=== PATIENT | male | born 1955 | race Caucasian/White ===

== ENCOUNTER 2017-08-21 10:51 | Inpatient (IN) | payer OTHER ==
[~2017-08-21] VITALS: Ht 188 cm; Wt 99.3 kg
[2017-08-21 10:56] VITALS: BP 122/82
--- NOTE | 2017-08-21 11:01 | NUR ---
PT AMBULATED TO BED 11
--- NOTE | 2017-08-21 11:08 | NUR ---
62M BIB SELF C/O DIFFICULTY BREATHING WITH WALKING OR ACTIVITY X 1 WEEK. DENIES N/V/D; SKIN IS PINK/WARM/DRY; AAOX4 WITH EVEN AND STEADY GAIT; LUNGS CLEAR BL; HR EVEN AND REGULAR; PT DENIES ANY FEVER, CP, SOB, OR COUGH AT THIS TIME; PATIENT STATES PAIN OF 0/10 AT THIS TIME; VSS; PATIENT POSITIONED FOR COMFORT; HOB ELEVATED; BEDRAILS UP X2; BED DOWN. ER MD MADE AWARE OF PT STATUS.
[2017-08-21] MEDS ORDERED: ASPIRIN 81 MG TAB.CHEW PO ONE (11:40)
--- NOTE | 2017-08-21 11:55 | NUR ---
XRAY AT BEDSIDE
[2017-08-21 12:23] LABS: BASOPHILS # (AUTO) 0.2 K/uL (0.00-0.22); BASOPHILS % (AUTO) 2.3 % (0.0-2.0); EOSINOPHILS # (AUTO) 0.1 K/uL (0-0.4); EOSINOPHILS % (AUTO) 1.3 % (0.0-4.0); HEMOGLOBIN 15.3 g/dL (12.0-18.0); LYMPHOCYTES # (AUTO) 0.8 K/uL (2.0-11.5); MEAN CORPUSCULAR HEMOGLOBIN 32 pg (27-31); MEAN CORPUSCULAR HGB CONC 33 g/dL (33-37); MEAN CORPUSCULAR VOLUME 99 fL (80-94); MONOCYTES # (AUTO) 0.7 K/uL (0.8-1.0); MONOCYTES % (AUTO) 9.2 % (1.7-9.3); NEUTROPHILS # (AUTO) 5.7 K/uL (1.8-7.7); NEUTROPHILS % (AUTO) 76.2 % (42.2-75.2); PLATELET COUNT (AUTO) 208 K/uL (140-450); RED BLOOD CELL COUNT(AUTO) 4.75 MIL/uL (4.20-6.10); RED CELL DISTRIBUTION WIDTH 12.6 % (11.6-13.7); WHITE BLOOD COUNT (AUTO) 7.5 K/uL (4.8-10.8)
[2017-08-21 12:53] LABS: ANION GAP 16.7 (8-16); CARBON DIOXIDE 25.9 mmol/L (21-32); CREATININE 1.5 mg/dL (0.7-1.3); POTASSIUM 4.6 mmol/L (3.5-5.1)
[2017-08-21 13:01] LABS: ALBUMIN 3.9 g/dL (3.4-5.0); TOTAL BILIRUBIN 0.7 mg/dL (0.0-1.0)
[2017-08-21 13:06] LABS: CHOL/HDL RATIO 6.1 (1-4.5)
[2017-08-21 13:32] LABS: CREATINE KINASE MB 1.6 ng/mL (0-3.6)
[2017-08-21] MEDS ORDERED: AMLO5TAB PO (14:53)
[2017-08-21] MEDS ORDERED: GLIP10TE PO (14:53)
[2017-08-21] MEDS ORDERED: RANI150T8 PO (14:53)
[2017-08-21] MEDS ORDERED: RAMI5CAP1 PO (14:53)
[2017-08-21] MEDS ORDERED: INSU100S22 SUBQ (14:53)
[2017-08-21] MEDS ORDERED: METF1000 PO (14:53)
[2017-08-21] MEDS ORDERED: ATORVASTATIN 20 MG TAB PO SCH ×2 (15:10→15:45)
[2017-08-21] MEDS ORDERED: ACETAMINOPHEN 325 MG TAB PO PRN ×2 (15:10→15:45)
[2017-08-21] MEDS ORDERED: NACL 0.9% 1,000 ML IV SCH (15:10)
[2017-08-21] MEDS ORDERED: METOPROLOL 25 MG TAB PO SCH (15:10)
[2017-08-21] MEDS ORDERED: NITROGLYCERIN 0.4 MG TAB SL PRN ×2 (15:10→15:45)
[2017-08-21] MEDS ORDERED: INSULIN LISPRO SLIDING SCALE 100 UNITS/ML VIAL SUBQ PRN (15:10)
[2017-08-21] MEDS ORDERED: DEXTROSE 50% 50 ML SYR IVP PRN ×2 (15:10→15:45)
[2017-08-21] MEDS ORDERED: RAMIPRIL 5 MG CAP PO SCH (15:25)
--- NOTE | 2017-08-21 15:47 | NUR ---
Pt report given to ALISSA CELAYA AT BEDSIDE. Transfer of care at this time. PATIENT TRANSFERRED TO TELEMETRY UNIT 105A. NO S/S OF ACUTE DISTRESS NOTED.
[2017-08-21] MEDS: BLOOD GLUCOSE MONITORING 1 DEV DEV FS SCH ×2 (16:30→20:50)
[2017-08-21] MEDS ORDERED: BLOOD GLUCOSE MONITORING 1 DEV DEV FS SCH (16:30)
[2017-08-21] MEDS: NACL 0.9% 1,000 ML IV SCH (16:34)
[2017-08-21 16:50] VITALS: BP 119/85
--- NOTE | 2017-08-21 16:50 | NUR ---
PATIENT ARRIVED TO MST UNIT FROM ER VIA BED/GURNEY, ABLE TO WALK FROM ER BED TO MST BED WITH STEADY GAIT. RECEIVED REPORT FROM ER NURSE. NO DISTRESS NOTED. DENIES ANY PAIN AT THIS TIME. AAOX4, CALM, COOPERATIVE, SKIN COLOR APPROPRIATE TO ETHNICITY, WARM TO TOUCH. SKIN IS INTACT THROUGHOUT BODY. LUNGS CTA ON ALL LOBES. ABDOMEN SOFT, NON-DISTENDED. IVF STARTED PER MD ORDERS. REVIEWED PLAN OF CARE WITH PATIENT. PATIENT VERBALIZED UNDERSTANDING. SAFETY MEASURES IN PLACE, CALL LIGHT WITHIN REACH. WILL CONTINUE TO MONITOR.
[2017-08-21 16:52] LABS: PROTHROMBIN TIME 10.6 secs (10.8-13.4)
[2017-08-21] MEDS ORDERED: MECLIZINE 25 MG TAB PO PRN (17:00)
[2017-08-21 17:03] LABS: CHOL/HDL RATIO 5.7 (1-4.5); FREE T4 (FREE THYROXINE) 1.16 ng/dL (0.76-1.46); THYROID STIMULATING HORMONE 2.26 uIU/mL (0.34-3.74)
[2017-08-21] MEDS: INSULIN LISPRO SLIDING SCALE 100 UNITS/ML VIAL SUBQ PRN (17:29)
[2017-08-21 17:31] LABS: BILIRUBIN,URINE 2+ (NEGATIVE); BLOOD, URINE TRACE-L (NEGATIVE); LEUKOCYTE ESTERASE ,URINE NEGATIVE (NEGATIVE); NITRITE, URINE NEGATIVE (NEGATIVE); UGLUCOSE 3+ (NEGATIVE)
[2017-08-21 17:34] LABS: APPEARANCE,URINE CLEAR (CLEAR); COLOR,URINE AMBER (YELLOW)
[2017-08-21 17:46] LABS: BENZODIAZEPINE, URINE NEG. ng/mL (NEG <=200); CANNABINOID, URINE NEG. ng/mL (NEG <=50); COCAINE, URINE POS. ng/mL (NEG <=300); OPIATE, URINE NEG. ng/mL (NEG <=2000); PHENCYCLIDINE SCREEN,URINE NEG. ng/mL (NEG <=25)
--- NOTE | 2017-08-21 17:47 | NUR ---
RADIOLOGIST AT BEDSIDE PERFORMING SCAN. WILL CONTINUE TO MONITOR.
[2017-08-21 18:06] LABS: BARBITURATE, URINE NEG. ng/ml (NEG <=200)
[2017-08-21 18:34] LABS: RBC,URINE NONE SEEN /HPF (0-5); WBC,URINE NONE SEEN /HPF (0-5)
--- NOTE | 2017-08-21 19:35 | NUR ---
GAVE REPORT TO PEANUT GRADER NURSE FOR CONTINUITY OF CARE. PATIENT IN STABLE CONDITION.
--- NOTE | 2017-08-21 19:36 | NUR ---
RECEIVED REPORT FROM DAY SHIFT NURSE ALISSA FOR CONTINUITY OF CARE, PT IN STABLE CONDITION. NO S/S OF DISTRESS NOTED. PT AAOX4, ON ROOM AIR. IV TO L AC 20G, PATENT AND INTACT, INFUSING WELL. SKIN WARM AND DRY TO TOUCH. RR EVEN/UNLABORED. BOWEL SOUNDS PRESENT. INITIAL ASSESSMENT COMPLETED. PLAN OF CARE DISCUSSED WITH PT, VERBALIZED UNDERSTANDING. ALL SAFETY PRECAUTIONS MET, CALL LIGHT WITHIN REACH, WILL CONTINUE TO MONITOR
[2017-08-21 20:00] VITALS: BP 126/84
[2017-08-21] MEDS: FAMOTIDINE 20 MG TAB PO SCH (20:35)
[2017-08-21] MEDS: METOPROLOL 25 MG TAB PO SCH (20:39)
[2017-08-21] MEDS: RAMIPRIL 5 MG CAP PO SCH (20:49)
[2017-08-21] MEDS: INSULIN LANTUS 100 UNITS/ML 10 ML VIAL SUBQ SCH (21:00)
[2017-08-21] MEDS ORDERED: NON-FORMULARY ITEM (Insulin Glargine,Hum.rec.anlog (Lantus Solostar) 15 UNIT) SUBQ SCH ×2 (21:00)
[2017-08-21] MEDS ORDERED: NON-FORMULARY ITEM (Ranitidine HCl (Ranitidine Hydrochloride) 150 MG) PO SCH ×2 (21:00)
--- NOTE | 2017-08-21 21:30 | NUR ---
PT REFUSED LANTUS AT THIS TIME. BS 91. PT STATES, "I KNOW MYSELF AND I KNOW THAT WILL BOTTOM ME OUT, ILL BE BELOW 60 AND SCREAMING AND CRYING." PT EDUCATION ON MEDICATION PURPOSE AND SIDE EFFECTS. PT VERBALIZED UNDERSTANDING BUT REFUSES.
[2017-08-22] VITALS: BP 124/62
[2017-08-22] MEDS: NACL 0.9% 1,000 ML IV SCH (00:40)
--- NOTE | 2017-08-22 01:43 | NUR ---
DOMENICA CALLED IN REGARDS TO PTS CT ORDER WITH CONTRAST, PTS CREATININE IS 1.5 HIGH, DR. CRUZ MADE AWARE.
--- NOTE | 2017-08-22 01:44 | NUR ---
ORDER PUT IN FOR CT WITH CONTRAST IN AM, DOMENICA OCHOA [facility] CALLED BECAUSE IT WAS SUPPOSED TO BE CANCELED. DOMENICA STATED SHE WILL NOTIFY DR. CRUZ
[2017-08-22 04:00] VITALS: BP 128/72
--- NOTE | 2017-08-22 06:15 | NUR ---
PTS BS 155, PT STATES, "AT HOME I WOULD NOT TAKE ANYTHING FOR THAT. DO NOT GIVE ME INSULIN, IT WILL DROP TOO LOW." PT EDUCATED ON RISKS AND BENEFITS, VERBALIZED UNDERSTANDING
[2017-08-22] MEDS: BLOOD GLUCOSE MONITORING 1 DEV DEV FS SCH ×4 (06:34→20:44)
[2017-08-22 07:32] LABS: BASOPHILS # (AUTO) 0.2 K/uL (0.00-0.22); BASOPHILS % (AUTO) 3.9 % (0.0-2.0); EOSINOPHILS # (AUTO) 0.1 K/uL (0-0.4); EOSINOPHILS % (AUTO) 2.4 % (0.0-4.0); HEMATOCRIT 41.3 % (36-52); HEMOGLOBIN 13.6 g/dL (12.0-18.0); LYMPHOCYTES # (AUTO) 0.8 K/uL (2.0-11.5); LYMPHOCYTES % (AUTO) 12.6 % (20.5-51.1); MEAN CORPUSCULAR HEMOGLOBIN 33 pg (27-31); MEAN CORPUSCULAR HGB CONC 33 g/dL (33-37); MEAN CORPUSCULAR VOLUME 99 fL (80-94); MONOCYTES # (AUTO) 0.7 K/uL (0.8-1.0); MONOCYTES % (AUTO) 11.7 % (1.7-9.3); NEUTROPHILS # (AUTO) 4.4 K/uL (1.8-7.7); NEUTROPHILS % (AUTO) 69.4 % (42.2-75.2); PLATELET COUNT (AUTO) 169 K/uL (140-450); RED BLOOD CELL COUNT(AUTO) 4.17 MIL/uL (4.20-6.10); RED CELL DISTRIBUTION WIDTH 12.8 % (11.6-13.7); WHITE BLOOD COUNT (AUTO) 6.2 K/uL (4.8-10.8)
--- NOTE | 2017-08-22 07:32 | NUR ---
REPORT GIVEN TO DAY SHIFT NURSE FOR CONTINUITY OF CARE, PT IN STABLE CONDITION. NO S/S OF DISTRESS NOTED.
--- NOTE | 2017-08-22 07:34 | NUR ---
RECEIVED REPORT FROM SENIOR APPLICATIONS ARCHITECT NURSE. PATIENT IS IN STABLE CONDITION. ALERT AND ORIENTEDX4. PATIENT SHOWS NO S/SX OF RESPIRATORY DISTRESS ON ROOM AIR. IV IN THE L AC INFUSING NS AT 120ML/HR 20G. IV IS CLEAN, DRY, AND INTACT. CARDIAC DIET IN PLACE. SQL PROGRAMMER ANALYST IN PLACE. BED IN LOW POSITION. CALL LIGHT WITHIN REACH. WILL CONTINUE TO MONITOR.
[2017-08-22 08:00] VITALS: BP 138/83
--- NOTE | 2017-08-22 08:00 | NUR ---
PATIENT IS IN DISTRESS D/T SOB AFTER AMBULATING FROM BATHROOM BACK TO BED. REPORTS FEELING DIZZINESS, FAINT, AND SOB. VITAL SIGNS SHOW DECREASE O2SAT AND INCREASE B/P. HOWEVER VITALS BECAME STABLE AFTER RESTING WITHOUT OXYGEN. NASAL CANNULA 2L OXYGEN PER MIN PLACED BESIDE PATIENT NEEDED IN CASE ANOTHER EPISODE OCCURS. URINAL WITHIN REACH, CALL LIGHT WITHIN REACH. WILL CONTINUE TO MONITOR PATIENT.
[2017-08-22 08:12] LABS: ANION GAP 15.5 (8-16); CARBON DIOXIDE 25.8 mmol/L (21-32); CREATININE 1.2 mg/dL (0.7-1.3); POTASSIUM 4.3 mmol/L (3.5-5.1)
[2017-08-22] MEDS ORDERED: amLODIPine 5 MG TAB PO SCH (09:00)
[2017-08-22] MEDS ORDERED: DOCUSATE 100 MG/10 ML UDC GT SCH (09:00)
[2017-08-22] MEDS: DOCUSATE SODIUM 100 MG GELCAP PO SCH ×2 (09:00→09:14)
[2017-08-22] MEDS ORDERED: ASPIRIN 81 MG TAB.CHEW PO SCH ×2 (09:00)
[2017-08-22] MEDS: FAMOTIDINE 20 MG TAB PO SCH ×2 (09:11→20:43)
[2017-08-22] MEDS: ATORVASTATIN 20 MG TAB PO SCH (09:12)
[2017-08-22] MEDS: amLODIPine 5 MG TAB PO SCH (09:13)
[2017-08-22] MEDS: METOPROLOL 25 MG TAB PO SCH ×2 (09:13→20:43)
[2017-08-22] MEDS: RAMIPRIL 5 MG CAP PO SCH ×2 (09:14→20:43)
[2017-08-22] MEDS: INSULIN LANTUS 100 UNITS/ML 10 ML VIAL SUBQ SCH ×2 (09:25→20:57)
--- NOTE | 2017-08-22 09:30 | NUR ---
PATIENT SITTING IN BED WATCHING TV. NO DISTRESS NOTED. DENIES ANY PAIN AT THIS TIME. SCHEDULED MEDICATIONS DUE GIVEN. SAFETY MEASURES IN PLACE. CALL LIGHT WITHIN REACH. WILL CONTINUE TO MONITOR.
--- NOTE | 2017-08-22 10:31 | NUR ---
PATIENT HAS BEEN SCREENED AND CATEGORIZED MODERATE NUTRITION RISK. PATIENT WILL BE SEEN WITHIN 3-5 DAYS OF ADMISSION. 08/24/17 - 08/26/[address]
--- NOTE | 2017-08-22 10:45 | NUR ---
RADIOLOGY TOOK PATIENT FOR CT SCAN. WILL CONTINUE TO MONITOR. WHEN PATIENT RETURNS.
[2017-08-22] MEDS ORDERED: HEPARIN PER PHARMACY MC PRN (11:50)
[2017-08-22 12:00] VITALS: BP 112/73
[2017-08-22] MEDS: INSULIN LISPRO SLIDING SCALE 100 UNITS/ML VIAL SUBQ PRN ×2 (13:02→17:46)
[2017-08-22] MEDS: hePARIN / DEXT 5% PREMIX 250 ML IV SCH ×2 (13:44→21:33)
--- NOTE | 2017-08-22 13:45 | NUR ---
PATIENT SITTING IN BED COMFORTABLY. NO DISTRESS NOTED. DENIES ANY PAIN AT THIS TIME. NEW IV LINE STARTED ON RIGHT HAND FOR HEPARIN DRIP. HEPARIN BOLUS AND AND HEPARIN DRIP STARTED PER PHARMACY PROTOCOL. EDUCATED PATIENT ON RISKS OF HEPARIN. PATIENT VERBALIZED UNDERSTANDING. SAFETY MEASURES IN PLACE, CALL LIGHT WITHIN REACH. WILL CONTINUE TO MONITOR.
--- NOTE | 2017-08-22 15:31 | NUR ---
CM NOTE INITIAL REVIEW FAXED TO [facility] (FAX# [phone], ATTN: EMELIA #[phone] [id number]) & [facility] (FAX# [phone])
[2017-08-22 16:00] VITALS: BP 124/77
--- NOTE | 2017-08-22 16:30 | NUR ---
DR BOYER AT BEDSIDE REVIEWING PLAN OF CARE WITH PATIENT. WILL CONTINUE TO MONITOR.
--- NOTE | 2017-08-22 17:46 | NUR ---
PATIENT LYING IN BED TALKING WITH DAUGHTER AT BEDSIDE. NO DISTRESS NOTED. DENIES ANY PAIN AT THIS TIME. HEPARIN DRIP RUNNING PER PROTOCOL. IVF RUNNING PER ORDERS. SCHEDULED MEDICATIONS DUE GIVEN. SAFETY MEASURES IN PLACE, CALL LIGHT WITHIN REACH. WILL CONTINUE TO MONITOR.
--- NOTE | 2017-08-22 19:28 | NUR ---
GAVE REPORT TO OUTBOUND SALES ADVISOR NURSE. ENDORSED PATIENT IN STABLE CONDITION.
--- NOTE | 2017-08-22 19:35 | NUR ---
RECEIVED REPORT FROM AM RN.PT IS AWAKE ALERT AND ORIENTED.RESP UNLABORED.HEPARIN DRIP AT 1500U/H INFUSING WELL.WILL FOLLOW PTT LATER.SL PATENT IN RT.FA.CARE PLAN DISCUSSED W/PT.HE VERBALIZED UNDERSTANDING.NO C/O PAIN NOW.CALL LIGHT WITHIN REACH.WILL CONTINUE MONITORING.
[2017-08-22 19:46] VITALS: BP 102/60
--- NOTE | 2017-08-22 21:05 | NUR ---
PT'S JB=066.HE REFUSED TO TAKE HUMALOG INSULIN.HE ONLY TOOK LANTUS INSULIN.
--- NOTE | 2017-08-22 22:00 | NUR ---
PTT=44.6.3500UNITS HEPARIN BOLUS IV GIVEN AND INCREASED RATE TO 1700U/H (17ML/H).NEXT PTT WILL BE AT 0330
[2017-08-23] VITALS: BP 124/76
--- NOTE | 2017-08-23 | NUR ---
HEPARIN DRIP IS IN PROGRESS.NO C/O PAIN OR DISCOMFORT.TELE SHOWING SR.CALL LIGHT IN REACH.
--- NOTE | 2017-08-23 | NUR ---
SLEEPING.VS STABLE.HEPARIN DRIP STILL INFUSING.
[2017-08-23 04:00] VITALS: BP 139/87
--- NOTE | 2017-08-23 04:00 | NUR ---
PTT AT 0330=65.3.NO CHANGE IN HEPARIN DRIP RATE NEEDED.STILL INFUSING AT 1700U/H(17ML/H).
[2017-08-23] MEDS: hePARIN / DEXT 5% PREMIX 250 ML IV SCH ×2 (04:11→18:58)
--- NOTE | 2017-08-23 06:47 | NUR ---
BS THIS FG=566.WILL COVER W/HUMALOG .NO C/O PAIN AND OR DISCOMFORT.NEXT PTT WILL BE AT 0930
[2017-08-23] MEDS: INSULIN LISPRO SLIDING SCALE 100 UNITS/ML VIAL SUBQ PRN ×3 (07:00→17:12)
[2017-08-23] MEDS ORDERED: WARFARIN 5 MG TAB PO SCH ×2 (07:00→17:00)
[2017-08-23] MEDS: BLOOD GLUCOSE MONITORING 1 DEV DEV FS SCH ×4 (07:01→21:28)
--- NOTE | 2017-08-23 07:10 | NUR ---
RECEIVED REPORT FROM WELDING SETTER NURSE. PATIENT SITTING IN BED WATCHING TV. NO DISTRESS NOTED. DENIES ANY PAIN. AAOX4, CALM, COOPERATIVE, SKIN COLOR APPROPRIATE TO ETHNICITY, WARM TO TOUCH. SKIN IS INTACT. LUNGS CTA ON ALL LOBES. ABDOMEN SOFT, NON-DISTENDED. HAS 2 IV SITES ON RIGHT ARM. RIGHT HAND #22 GAUGE CURRENTLY INFUSING HEPARIN DRIP AT 1700 UNITS/HR. RIGHT FOREARM #20 ON SALINE LOCK. REVIEWED PLAN OF CARE WITH PATIENT. PATIENT VERBALIZED UNDERSTANDING. SAFETY MEASURES IN PLACE, CALL LIGHT WITHIN REACH. WILL CONTINUE TO MONITOR.
[2017-08-23 07:26] LABS: ANION GAP 16.9 (8-16); CARBON DIOXIDE 21.9 mmol/L (21-32); CREATININE 1.3 mg/dL (0.7-1.3); POTASSIUM 3.8 mmol/L (3.5-5.1)
[2017-08-23 07:58] VITALS: BP 130/73
[2017-08-23] MEDS: DOCUSATE SODIUM 100 MG GELCAP PO SCH (09:00)
[2017-08-23] MEDS: RAMIPRIL 5 MG CAP PO SCH ×2 (10:18→21:29)
[2017-08-23] MEDS: METOPROLOL 25 MG TAB PO SCH ×2 (10:19→21:29)
[2017-08-23] MEDS: FAMOTIDINE 20 MG TAB PO SCH ×2 (10:19→21:28)
[2017-08-23] MEDS: ATORVASTATIN 20 MG TAB PO SCH (10:19)
[2017-08-23] MEDS: amLODIPine 5 MG TAB PO SCH (10:19)
--- NOTE | 2017-08-23 10:19 | NUR ---
CALLED DEANN FROM [facility] ABOUT OXYGEN. SHE SAID IF OXYGEN NEEDED, CALL [facility], . FAX [phone]. SEND ORDER AND O2 QUALIFIER TO HOMA ZACARIAS AT [facility] PHONE [phone] X [phone].
[2017-08-23] MEDS: INSULIN LANTUS 100 UNITS/ML 10 ML VIAL SUBQ SCH ×2 (10:25→21:35)
--- NOTE | 2017-08-23 10:30 | NUR ---
PATIENT SITTING IN BED COMFORTABLY. PHYSICAL THERAPIST AT BEDSIDE GETTING PATIENT READY FOR TREATMENT. SCHEDULED MEDICATIONS DUE GIVEN. DENIES ANY PAIN AT THIS TIME. 0930 PTT VALUE 52.6 WHICH IS WITHIN THERAPEUTIC. 2 CONSECUTIVE THERAPEUTIC VALUES OF PTT. WILL ORDER PTT VALUE TOMORROW MORNING WITH 0600 LABS PER PHARMACY PROTOCOL. SAFETY MEASURES IN PLACE, CALL LIGHT WITHIN REACH. WILL CONTINUE TO MONITOR.
--- NOTE | 2017-08-23 11:15 | NUR ---
PHYSICAL THERAPISTS AT BEDSIDE WORKING WITH PATIENT. PATIENT WALKING AROUND HALLWAYS ON ROOM AIR WITHOUT ANY REPORTS OF SHORTNESS OF BREATH. REPORTS FEELING MUCH BETTER COMPARED TO ADMISSION. PATIENT'S O2 SAT >93% ON ROOM AIR THROUGHOUT AMBULATION WITH PHYSICAL THERAPISTS. WILL CONTINUE TO MONITOR.
[2017-08-23 12:00] VITALS: BP 128/77
--- NOTE | 2017-08-23 13:00 | NUR ---
PATIENT SITTING IN BED WATCHING TV. NO DISTRESS NOTED. O2 SAT 98% ON ROOM AIR. DENIES ANY PAIN. SCHEDULED MEDICATIONS DUE GIVEN. SAFETY MEASURES IN PLACE, CALL LIGHT WITHIN REACH. WILL CONTINUE TO MONITOR.
--- NOTE | 2017-08-23 14:25 | NUR ---
FAXED CONCURRENT REVIEW TO [facility] [phone] PHONE [phone] EMELIA FAXED CONCURRENT REVIEW TO [facility] [phone] PHONE [phone] [phone] DEANN
--- NOTE | 2017-08-23 14:29 | NUR ---
1415 SPOKE WITH PT AT BEDSIDE AND HE STATED THAT HE IS TRYING TO GET HIS INSURANCE COMPANY [employer] TO AUTHORIZE ZARALTO HE DOES NOT WANT TO TAKE COUMADIN. PT STATED THAT HE HAS TALKED TO [facility] AND THEY WILL FAX OVER AN AUTHORIZATION REQUEST. PROVIDED PT WITH THE FAX NUMBER OF THE NURSING STATION AND INSTRUCTED HIM TO HAVE [facility] FAX THE FORM AND I WILL REQUEST THAT THE RESIDENT FILL OUT THE FORM AND FAX BACK PT WILL GET THE FAX NUMBER. [phone] PT CALLED AND PROVIDE [facility] FAX NUMBER [phone] AND STATED THAT REQUEST NEEDS TO BE LABELED URGENT REQUEST. PT THEN PROVIDED ME WITH THE [facility] NUMBER OF THE [facility] [place] [facility] NUMBER [phone]. CALLED [facility] AND WAS GIVEN FAX NUMBER [phone]. RX FOR ZARALTA NEEDS TO BE FAXED TO [facility]. INFORMED PT THAT I HAD OBTAINED PHARMACY NUMBER AND WILL UPDATE DR ON WHAT NEEDS TO BE DONE TO REQUEST THE ZARALTA.
--- NOTE | 2017-08-23 14:50 | NUR ---
PATIENT SITTING IN BED WATCHING TV. NO DISTRESS NOTED. RECENTLY SPOKE WITH REPRODUCTION ORDER PROCESSOR. CONDITION UNCHANGED. SAFETY MEASURES IN PLACE, CALL LIGHT WITHIN REACH. WILL CONTINUE TO MONITOR.
[2017-08-23 16:00] VITALS: BP 129/84
--- NOTE | 2017-08-23 16:03 | NUR ---
PATIENT LYING DOWN IN BED SLEEPING, AROUSABLE BY VOICE. NO DISTRESS NOTED. DENIES ANY PAIN. CONDITION UNCHANGED. SAFETY MEASURES IN PLACE, CALL LIGHT WITHIN REACH. WILL CONTINUE TO MONITOR.
--- NOTE | 2017-08-23 17:19 | NUR ---
PATIENT SITTING IN BED WATCHING TV. NO DISTRESS NOTED. DENIES ANY PAIN. SCHEDULED MEDICATIONS DUE GIVEN. COUMADIN FIRST DOSE 10 MG ORAL GIVEN. HEPARIN DRIP CONTINUES TO RUN PER PHARMACY TITRATION PROTOCOL. SAFETY MEASURES IN PLACE, CALL LIGHT WITHIN REACH. WILL CONTINUE TO MONITOR.
--- NOTE | 2017-08-23 18:45 | NUR ---
PATIENT SITTING IN BED TALKING WITH FAMILY MEMBER AT BEDSIDE. NO DISTRESS NOTED. RESPIRATIONS EVEN, UNLABORED, ON ROOM AIR. SAFETY MEASURES IN PLACE, CALL LIGHT WITHIN REACH. WILL CONTINUE TO MONITOR.
--- NOTE | 2017-08-23 19:15 | NUR ---
GAVE REPORT TO ETL APPLICATION DEVELOPER NURSE FOR CONTINUITY OF CARE. PATIENT IN STABLE CONDITION.
--- NOTE | 2017-08-23 19:16 | NUR ---
RECEIVED REPORT FROM DAY SHIFT, PT IS A/OX4, ON ROOM AIR. PT HAS TWO IV'S, ONE TO RIGHT FOREARM, AND ONE TO RIGHT HAND INFUSING HEPARIN. PT PT AMBULATES WITH STEADY GAIT, SKIN IS INTACT. UPDATED BOARD. DISCUSSED PLAN OF CARE WITH PT, PT VERBALIZED UNDERSTANDING. VITAL SIGNS WITHIN NORMAL LIMITS. PT IN STABLE CONDITION, NO SIGNS OF DISTRESS NOTED. BED IN LOWEST POSITION, CALL LIGHT WITHIN REACH. WILL CONTINUE TO MONITOR.
[2017-08-23 20:00] VITALS: BP 149/82
--- NOTE | 2017-08-23 21:35 | NUR ---
ADMINISTERED SCHEDULED MEDICATIONS, PT TOLERATED WELL. PT REFUSED INSULIN COVERAGE FOR BLOOD SUGAR 234, HE SAID TO ONLY ADMINISTER THE LANTUS BECAUSE HE WAS SCARED OF GOING INTO A DIABETIC COMA. EXPLAINED TO PT THAT BOTH INSULINS WORKED DIFFERENTLY, PT SAID HE KNEW WHAT BOTH INSULINS WERE BUT HE DID NOT WANT TO TAKE THE HUMALOG AT THIS TIME. PT IN STABLE CONDITION, NO SIGNS OF DISTRESS NOTED. BED IN LOWEST POSITION, CALL LIGHT WITHIN REACH. WILL CONTINUE TO MONITOR.
[2017-08-24] VITALS: BP 130/76
--- NOTE | 2017-08-24 | NUR ---
VITAL SIGNS WITHIN NORMAL LIMITS. PT IN STABLE CONDITION, NO SIGNS OF DISTRESS NOTED. BED IN LOWEST POSITION, CALL LIGHT WITHIN REACH. WILL CONTINUE TO MONITOR.
[2017-08-24 04:00] VITALS: BP 139/88
--- NOTE | 2017-08-24 04:00 | NUR ---
VITAL SIGNS WITHIN NORMAL LIMITS. PT IN STABLE CONDITION, NO SIGNS OF DISTRESS NOTED. BED IN LOWEST POSITION, CALL LIGHT WITHIN REACH. WILL CONTINUE TO MONITOR.
[2017-08-24] MEDS: BLOOD GLUCOSE MONITORING 1 DEV DEV FS SCH ×2 (06:31→12:17)
[2017-08-24] MEDS: INSULIN LISPRO SLIDING SCALE 100 UNITS/ML VIAL SUBQ PRN ×2 (06:31→12:27)
--- NOTE | 2017-08-24 07:28 | NUR ---
ENDORSED PT IN STABLE CONDITION TO DAY SHIFT RN FOR CONTINUITY OF CARE.
--- NOTE | 2017-08-24 07:28 | NUR ---
RECEIVED REPORT FROM NIGHTSHIFT NURSE AT BEDSIDE. PATIENT IS AWAKE. PATIENT A&OX4. PATIENT ON HEPARIN DRIP 1700U/HR FLOWING THROUGH 22G RIGHT HAND. NO SIGNS OF EXCESSIVE BLEEDING FOR PATIENT. PATIENT SKIN IS IN TACT AND NO SIGNS OF BRUISING. PATIENT DOES NOT SHOW ANY SIGNS OF RESPIRATORY DISTRESS OR RESPIRATORY DEPRESSION. NO SIGNS OF PAIN AT THIS TIME. UPDATED BOARD OF PATIENT AND PUT CALL LIGHT WITHIN REACH OF PATIENT. INSTRUCTED PATIENT TO CALL IF HE NEEDS ANYTHING. WILL CLOSELY MONITOR PATIENT.
[2017-08-24 07:32] LABS: PROTHROMBIN TIME 11.9 secs (10.8-13.4)
[2017-08-24 07:43] VITALS: BP 131/77
[2017-08-24] MEDS: DOCUSATE SODIUM 100 MG GELCAP PO SCH (09:00)
[2017-08-24] MEDS: ATORVASTATIN 20 MG TAB PO SCH (09:05)
[2017-08-24] MEDS: FAMOTIDINE 20 MG TAB PO SCH (09:06)
[2017-08-24] MEDS: amLODIPine 5 MG TAB PO SCH (09:06)
[2017-08-24] MEDS: RAMIPRIL 5 MG CAP PO SCH (09:06)
[2017-08-24] MEDS: METOPROLOL 25 MG TAB PO SCH (09:07)
--- NOTE | 2017-08-24 09:10 | NUR ---
PATIENT WATCHING TELEVISION IN BED. NO COMPLAINTS OF PAIN. NO SHORTNESS OF BREATH NOTED. WILL CONTINUE TO MONITOR PATIENT.
[2017-08-24] MEDS: INSULIN LANTUS 100 UNITS/ML 10 ML VIAL SUBQ SCH (09:16)
--- NOTE | 2017-08-24 10:16 | NUR ---
PATIENT SITTING IN BED WITH NO COMPLAINTS OF PAIN. NO SIGNS OF RESPIRATORY DISTRESS OR RESPIRATORY DEPRESSION. AWAITING APTT LEVEL FROM LAB. WILL CONTINUE TO MONITOR PATIENT.
--- NOTE | 2017-08-24 11:38 | NUR ---
WAS INFORMED BY PATIENT THAT HE IS STILL HAVING TROUBLE WITH HIS INSURANCE COVERING HIS XARELTO MEDICATION. WILL NOTIFY DR. RODRIGUEZ.
[2017-08-24 12:00] VITALS: BP 138/78
--- NOTE | 2017-08-24 12:28 | NUR ---
INFORMED PATIENT THAT HIS PTT LEVEL IS WITHIN THERAPEUTIC LEVEL. PATIENT VERBALIZED UNDERSTANDING.
--- NOTE | 2017-08-24 13:23 | NUR ---
PATIENT RESTING IN BED AT THIS TIME. NO COMPLAINTS OF PAIN AT THIS TIME. NO SHORTNESS OF BREATH NOTED. WILL CONTINUE TO MONITOR PATIENT.
[2017-08-24] MEDS ORDERED: ATOR20TA40 PO (15:36)
[2017-08-24] MEDS ORDERED: METO25TA PO (15:36)
[2017-08-24] MEDS ORDERED: RIVA15TA1 PO (15:39)
[2017-08-24] MEDS ORDERED: RIVA20TA PO (15:39)
--- NOTE | 2017-08-24 15:47 | NUR ---
FAMILY AT BEDSIDE WITH PATIENT. INFORMED OF PATIENT'S DISCHARGE BY NURSING BACK ROLL LATHE OPERATOR. PATIENT IS IN STABLE CONDITION AT THIS TIME. WILL CONTINUE TO MONITOR THE PATIENT.
[2017-08-24 16:00] VITALS: BP 140/78
[2017-08-24] MEDS ORDERED: WARFARIN 5 MG TAB PO SCH (17:00)
--- NOTE | 2017-08-24 17:20 | NUR ---
PATIENT SIGNED ALL DISCHARGE INSTRUCTIONS AND AWARE OF ALL PRESCRIPTIONS. PATIENT VERBALIZED UNDERSTANDING. DISCONTINUED PATIENT'S IV SITES WITH CATHETER STILL INTACT. REMOVED PATIENT'S IDENTIFICATION BANDS. PATIENT IN STABLE CONDITION. PATIENT LEFT WITH ALL BELONGINGS WITH FAMILY MEMBERS VIA WHEELCHAIR.
--- NOTE | 2017-08-27 15:18 | NUR ---
PER REQUEST OF AMANDA CELAYAMARKETING TEACHER, I HAD TO FOLLOW UP ON AUTHORIZATION FOR HIS XARELTO. I CALLED THE [facility] ON [phone] AND SPOKE WITH CASIMIRO. SHE SAID THAT THE PRESCRIPTION WENT TO THE [facility], [phone]. I CALLED EMELIA FROM [facility] AND LEFT A MESSAGE, NO CALL BACK.] I CALLED FRANK ABOUT THE AUTHORIZATION FROM [facility] FOR XARELTO AND SHE SAID TO CALL THE PHARMACY, PHONE [phone] X [phone] I CALLED AND SPOKE WITH RAGHU, MEDICAL RECORD ADMINISTRATOR. SHE SAID SHE JUST RECEIVED THE FORM, PRESCRIPTION DRUG PRIOR AUTHORZATION. SHE SAID SHE WOULD ASA THIS URGENT AND GET IT TO THE PHARMACIST LEIGHANN. I DID CALL THE PATIENT, MARIAJOSE MCKOY AND INFORMED HIM THAT [facility] DID GET THE FORM. WAITING AUTH.
--- NOTE | 2017-08-27 15:45 | NUR ---
I CALLED [facility] IN [place] WHERE THE PATIENT GOT HIS PRESCRIPTION PARTIALLY FILLED. PHONE [phone] THEIR FAX NUMBER IS [phone] . I CALLED [facility] AND SPOKE WITH RAGHU. SHE SAID THE XARELTO WILL BE APPROVED. I GAVE HER THE FAX NOEL TO THE [facility]. Addendum: 08/27/17 at 1620 by Jacki Larsen CM I CALLED MARIAJOSE MCKOY AND INFORMED HIM THAT THE XARELTO IS BEING APPROVED. HE WILL CHECK WITH THE PHARMACY TOMORROW.
--- NOTE | 2017-08-28 10:05 | NUR ---
LATE ENTRY FOR 08/27/17 O900 PLACED CALL TO PT PER VM LEFT REQUESTING A CALL BACK. PER PT [facility] DID NOT SEND THE AUTHORIZATION TO [facility] FOR XARELTO AND HE HAD TO PAY OUT OF POCKET FOR THE MEDICATION. STATED THAT HE HAD SPOKEN TO SOMEONE AT [facility] AND THEY SAID THEY HAD NOT RECEIVED THE AUTH REQUEST. INFORMED PT THAT I VERIFIED WITH RENY CHARGE NURSE AND IT WAS FAXED TO [facility] ON 08/24. INFORMED PT THAT I WOULD RE-FAX THE AUTHORIZATION TO [facility] AND TRY TO FOLLOW UP WITH A PHONE CALL TO CONFIRM RECEIPT. INFORMED PT WILL CALL BACK WITH AN UPDATE.
== END 2017-08-24 17:20 | disposition home or self-care (01) | DRG 134 ==
LOC: MED 10:51 → MTU 15:20 → MED 15:38
PROVIDERS: ADMIT Student in an Organized Health Care Education/Training Program; ATTEND Student in an Organized Health Care Education/Training Program
DX: I26.99 Other pulmonary embolism without acute cor pulmonale (principal); N17.0 Acute kidney failure with tubular necrosis; J96.01 Acute respiratory failure with hypoxia; G92 Toxic encephalopathy; I42.9 Cardiomyopathy, unspecified; D68.59 Other primary thrombophilia; E11.51 Type 2 diabetes mellitus with diabetic peripheral angiopathy without gangrene; E87.1 Hypo-osmolality and hyponatremia; E83.52 Hypercalcemia; I27.82 Chronic pulmonary embolism; Z87.891 Personal history of nicotine dependence; T40.5X1A Poisoning by cocaine, accidental (unintentional), initial encounter; E11.65 Type 2 diabetes mellitus with hyperglycemia; I27.24 Chronic thromboembolic pulmonary hypertension; E78.1 Pure hyperglyceridemia; I20.9 Angina pectoris, unspecified; E78.00 Pure hypercholesterolemia, unspecified; K80.20 Calculus of gallbladder without cholecystitis without obstruction; F14.10 Cocaine abuse, uncomplicated; I70.209 Unspecified atherosclerosis of native arteries of extremities, unspecified extremity; K76.0 Fatty (change of) liver, not elsewhere classified; I11.9 Hypertensive heart disease without heart failure; E78.5 Hyperlipidemia, unspecified; Z80.0 Family history of malignant neoplasm of digestive organs; Z90.49 Acquired absence of other specified parts of digestive tract; Z83.3 Family history of diabetes mellitus; Z82.49 Family history of ischemic heart disease and other diseases of the circulatory system; Y92.89 Other specified places as the place of occurrence of the external cause; Z79.4 Long term (current) use of insulin; Z60.2 Problems related to living alone
CPT/HCPCS: 36415; 36600; 71045; 71275; 76705; 80048; 80053; 80305; 81001; 82140; 82150; 82550; 82553; 82803; 82948; 83036; 83690; 83880; 84439; 84443; 84479; 84484; 85025; 85379; 85610; 85730; 87081; 93005; 93880; 93925; 93970; 97110; 97116; 97140; 97530; 99291; J1644; J1815; J7030; Q0092; Q9967

== ENCOUNTER 2019-02-27 13:32 | Emergency (ER) | payer MEDICARE, OTHER ==
[~2019-02-27] VITALS: Ht 188 cm; Wt 104.3 kg
[~2019-02-27 13:32] MED LIST: AMLO5TAB PO; ATOR20TA40 PO; INSU100S22 SUBQ; METO25TA PO; RAMI5CAP32 PO; RANI150T8 PO; RIVA15TA1 PO; RIVA20TA PO
[2019-02-27 13:41] VITALS: BP 183/83
[2019-02-27] MEDS ORDERED: ACETAMINOPHEN 325 MG TAB PO ONE (14:20)
--- NOTE | 2019-02-27 14:37 | NUR ---
XRAY AT BEDSIDE
--- NOTE | 2019-02-27 14:38 | NUR ---
INFLUENZA SWABS COLLECTED
--- NOTE | 2019-02-27 14:38 | NUR ---
C/O GENERAL WEAKNESS, BLE WEAKNESS, RIGHT LE EDEMA, FATIGUE, SOB. FULL CLEAR SPEECH.NEURO INTACT. PUPILS HELIO. EQUAL ARM CUSTOMER RELATIONS REPRESENTATIVE. FACIAL SYMMETRY. ACCU CHECK 200. PT ADDS SAME SYMPTOMS WITH FIRST DVT/PE. TEMP CURRENTLY 100.4 TYENOL PO ADMINISTERED. BP 183/83. AA0X4. BED IS DOWN, LOCKED, BED RAIL X 1, ERMD TO SEE PT. REMOVED OFF PRADAXA 4 MONTHS AGO HX--DVT/PE, DM, HTN, NEUROPATHY RX--SEE HOME MED LIST
--- NOTE | 2019-02-27 14:47 | NUR ---
US AT BEDSIDE
--- NOTE | 2019-02-27 14:52 | NUR ---
PT SIGNED CONSENT FORM FOR CONTRAST
[2019-02-27 14:55] LABS: BASOPHILS % (AUTO) 0.3 % (0.0-2.0); EOSINOPHILS # (AUTO) 0.1 K/uL (0-0.4); EOSINOPHILS % (AUTO) 1.1 % (0.0-4.0); HEMATOCRIT 38.8 % (36-52); LYMPHOCYTES # (AUTO) 0.3 K/uL (2.0-11.5); LYMPHOCYTES % (AUTO) 4.4 % (20.5-51.1); MEAN CORPUSCULAR HEMOGLOBIN 34 pg (27-31); MEAN CORPUSCULAR HGB CONC 34 g/dL (33-37); MEAN CORPUSCULAR VOLUME 100.9 fL (80-94); MONOCYTES # (AUTO) 0.5 K/uL (0.8-1.0); MONOCYTES % (AUTO) 6.8 % (1.7-9.3); NEUTROPHILS # (AUTO) 6.5 K/uL (1.8-7.7); NEUTROPHILS % (AUTO) 87.4 % (42.2-75.2); PLATELET COUNT (AUTO) 205 K/uL (140-450); RED BLOOD CELL COUNT(AUTO) 3.84 MIL/uL (4.20-6.10); RED CELL DISTRIBUTION WIDTH 14.8 % (11.6-13.7); WHITE BLOOD COUNT (AUTO) 7.5 K/uL (4.8-10.8)
[2019-02-27 15:10] LABS: ANION GAP 11.7 (8-16); CARBON DIOXIDE 30.3 mmol/L (21-32); CREATININE 1.4 mg/dL (0.7-1.3)
--- NOTE | 2019-02-27 15:13 | NUR ---
PT GIVEN URINAL FOR URINALYSIS
[2019-02-27 15:23] LABS: ALBUMIN 3.9 g/dL (3.4-5.0); TOTAL BILIRUBIN 0.9 mg/dL (0.0-1.0)
--- NOTE | 2019-02-27 15:54 | NUR ---
pt going to ct via wheelchair
--- NOTE | 2019-02-27 16:22 | NUR ---
pt returned from ct. aa0x4. temp orally 99.2
[2019-02-27 16:53] LABS: APPEARANCE,URINE CLEAR (CLEAR); BILIRUBIN,URINE NEGATIVE (NEGATIVE); BLOOD, URINE 1+ (NEGATIVE); COLOR,URINE YELLOW (YELLOW); LEUKOCYTE ESTERASE ,URINE NEGATIVE (NEGATIVE); NITRITE, URINE NEGATIVE (NEGATIVE); PH,URINE 7.5 (5.0-9.0); UGLUCOSE 2+ (NEGATIVE)
[2019-02-27 17:15] LABS: RBC,URINE 0-5 /HPF (0-5); WBC,URINE NONE SEEN /HPF (0-5)
--- NOTE | 2019-02-27 18:15 | NUR ---
PER DR KNIGHT, BLOOD CULTURES DO NOT NEED TO BE DRAWN PRIOR TO ANIBIOTICS
[2019-02-27] MEDS ORDERED: cefTRIAXone 1,000 MG VIAL ONE (18:16)
[2019-02-27 19:03] VITALS: BP 119/76
== END 2019-02-27 19:03 | disposition home or self-care (01) ==
LOC: MED 13:32
DX: L03.115 Cellulitis of right lower limb (principal); R50.9 Fever, unspecified; R06.02 Shortness of breath; E11.42 Type 2 diabetes mellitus with diabetic polyneuropathy; I10 Essential (primary) hypertension; Z79.4 Long term (current) use of insulin; Z79.899 Other long term (current) drug therapy
CPT/HCPCS: 36415; 71045; 71275; 80053; 81001; 83605; 83880; 84484; 85025; 87804; 93005; 93971; 96365; 99284; J0696; J7060; Q0092; Q9967